=== PATIENT | male | born 1985 | race African-American/Black ===

== ENCOUNTER 2019-02-03 01:57 | Emergency (ER) | payer SELFPAY ==
[~2019-02-03] VITALS: Ht 172.7 cm; Wt 74.0 kg
[2019-02-03] MEDS ORDERED: MAGNESIUM/ALUMINUM HYDROXIDE/SIMETHICONE 30ML UDC PO STA (04:03)
[2019-02-03] MEDS ORDERED: DICYCLOMINE 10 MG/5 ML ORAL SYR PO STA (04:03)
[2019-02-03] MEDS ORDERED: FAMOTIDINE 20MG TABLET PO ONE (04:15)
[2019-02-03 04:29] LABS: BASOPHILS % 1.1 % (0.0-2.0); EOSINOPHILS % 2.2 % (0.0-5.0); HEMATOCRIT. 44.8 % (42.0-52.0); HEMOGLOBIN. 14.6 g/dL (14.0-18.0); LYMPHOCYTES % 44.2 % (20.0-50.0); MEAN CORPUSCULAR HEMOGLOBIN 26.4 pg (28.0-32.0); MEAN CORPUSCULAR VOLUME 81.1 fL (80.0-94.0); MEAN PLATELET VOLUME 7.4 fl (7.4-10.4); MONOCYTES % 10.5 % (2.0-8.0); PLATELET 211 x1000/uL (130-400); RED BLOOD CELL COUNT 5.52 mill/uL (4.7-6.1); RED CELL DISTRIBUTION WIDTH 14.1 % (11.6-14.6)
[2019-02-03 04:36] LABS: CHLORIDE 105 mEq/L (98-107)
[2019-02-03 05:09] LABS: CLARITY URINE CLEAR (CLEAR); COLOR URINE YELLOW (YELLOW); KETONES URINE NEGATIVE (NEGATIVE); LEUKOCYTE ESTERASE URINE NEGATIVE (NEGATIVE); NITRITE URINE NEGATIVE (NEGATIVE); OCCULT BLOOD URINE NEGATIVE (NEGATIVE); PH URINE 6.5 (4.5-8.0); PROTEIN URINE NEGATIVE (NEGATIVE); SPECIFIC GRAVITY URINE 1.016 (1.005-1.030)
[2019-02-03 05:53] VITALS: BP 142/87
== END 2019-02-03 07:32 | disposition home or self-care (01) ==
LOC: ER 01:57
DX: R10.13 Epigastric pain (principal); R03.0 Elevated blood-pressure reading, without diagnosis of hypertension
CPT/HCPCS: 36415; 99283